=== PATIENT | female | born 1955 | race Caucasian/White ===

== ENCOUNTER 2021-08-07 10:49 | Observation (INO) | payer MEDICARE, OTHER ==
[2021-08-07] MEDS ORDERED: Sodium Chloride 0.9% 2.5 ML Syringe FLUSH PRN ×2 (10:59→15:27)
[2021-08-07] MEDS ORDERED: Sodium Chloride 0.9% 10 ML Syringe FLUSH PRN ×2 (10:59→15:27)
[2021-08-07] MEDS ORDERED: Diltiazem 50 MG/10 ML SDV IVPUSH ONE (11:10)
[2021-08-07] MEDS ORDERED: Sodium Chloride 0.9% 1,000 ML IV ONE (11:11)
[2021-08-07] MEDS ORDERED: Diltiazem IR 60 MG Tab PO ONE (11:32)
[2021-08-07 11:37] LABS: CARBON DIOXIDE,CO2 23.1 mmol/L (21.0-32.0); POTASSIUM,K 4.4 mmol/L (3.5-5.1)
[2021-08-07 12:03] LABS: CORONAVIRUS COVID-19 NAA NEGATIVE (NEGATIVE); INFLUENZA A NAA NEGATIVE (NEGATIVE); INFLUENZA B NAA NEGATIVE (NEGATIVE)
[2021-08-07] MEDS ORDERED: Ondansetron 4 MG/2 ML SDV IVPUSH PRN (15:27)
[2021-08-07] MEDS ORDERED: Acetaminophen 325 MG Tab PO PRN (15:27)
[2021-08-07 15:48] LABS: HEMOGLOBIN A1C 5.8 %
[2021-08-07] MEDS: Aspirin 81 MG Tab.Chew PO SCH (15:59)
[2021-08-07] MEDS ORDERED: Magnesium Oxide 400 MG Tab PO ONE ×2 (16:06→17:15)
[2021-08-07] MEDS: Diltiazem IR 60 MG Tab PO SCH ×2 (17:11→23:50)
[2021-08-08] MEDS: Diltiazem IR 60 MG Tab PO SCH (05:59)
[2021-08-08 06:52] LABS: BLOOD UREA NITROGEN,BUN 9 mg/dL (7.0-18.0); CARBON DIOXIDE,CO2 26.2 mmol/L (21.0-32.0); CHLORIDE,CL 99 mmol/L (98-107); GLUCOSE RANDOM 112 mg/dL (74-106); POTASSIUM,K 3.7 mmol/L (3.5-5.1); SODIUM,NA 134 mmol/L (136-145)
[2021-08-08] MEDS: Aspirin 81 MG Tab.Chew PO SCH (08:26)
[2021-08-08] MEDS ORDERED: Magnesium Oxide 400 MG Tab PO ONE (09:45)
[2021-08-08] MEDS ORDERED: Potassium Chloride 10% 20 MEQ/15 ML Soln 30 ML UD Cup PO ONE (09:45)
[2021-08-08] MEDS ORDERED: Diltiazem 180 MG Cap.CD PO SCH (11:30)
== END 2021-08-08 13:30 | disposition home or self-care (01) ==
LOC: MW.ED 10:49 → MW.MS 14:23
PROVIDERS: ADMIT Student in an Organized Health Care Education/Training Program; ATTEND Student in an Organized Health Care Education/Training Program
DX: I48.91 Unspecified atrial fibrillation (principal); R77.8 Other specified abnormalities of plasma proteins; R74.01 Elevation of levels of liver transaminase levels; I10 Essential (primary) hypertension; Z82.49 Family history of ischemic heart disease and other diseases of the circulatory system; Z79.899 Other long term (current) drug therapy; Z20.822 Contact with and (suspected) exposure to COVID-19
CPT/HCPCS: 0240U; 36415; 71045; 80053; 80061; 83036; 83735; 84443; 84484; 85025; 93005; 96374; 99285; A9270; J3490; J7030; G0378

== ENCOUNTER 2022-11-03 19:10 | Emergency (ER) | payer MEDICARE, OTHER ==
[2022-11-03] MEDS ORDERED: Sodium Chloride 0.9% 10 ML Syringe FLUSH PRN (19:32)
[2022-11-03] MEDS ORDERED: Sodium Chloride 0.9% 2.5 ML Syringe FLUSH PRN (19:32)
[2022-11-03 20:08] LABS: BASOPHILS PERCENT AUTO 0.2 % (0.0-1.5); EOSINOPHILS ABSOLUTE AUTO 0.1 K/uL (0.0-0.7); EOSINOPHILS PERCENT AUTO 0.6 % (0.0-7.0); HEMATOCRIT 40.8 % (36.0-46.0); HEMOGLOBIN 14.3 g/dL (12.0-16.0); LYMPHOCYTES ABSOLUTE AUTO 2.6 K/uL (0.6-2.4); LYMPHOCYTES PERCENT AUTO 31.7 % (16.0-40.0); MEAN CORPUSCULAR HEMOGLOBIN 31.3 pg (27.0-32.0); MEAN CORPUSCULAR VOLUME 89.3 fL (80.0-98.0); MONOCYTES ABSOLUTE AUTO 0.8 K/uL (0.0-0.8); MONOCYTES PERCENT AUTO 9.2 % (0.0-15.0); NEUTROPHILS ABSOLUTE AUTO 4.9 K/uL (1.4-5.7); NEUTROPHILS PERCENT AUTO 58.3 % (48.0-80.0); NRBC ABSOLUTE 0 K/uL; PLATELET COUNT,PLT 310 K/uL (150-400); RED BLOOD CELL COUNT 4.57 M/uL (4.30-5.90); WHITE BLOOD CELL COUNT,WBC 8.34 K/uL (4.0-11.0)
[2022-11-03 20:29] LABS: A/G RATIO 0.9 (0.9-1.6); ALBUMIN 3.8 g/dL (3.4-5.0); BILIRUBIN TOTAL 0.4 mg/dL (0.2-1.0); CARBON DIOXIDE,CO2 26.9 mmol/L (21.0-32.0); CREATININE 0.7 mg/dL (0.6-1.0); EST CRCL DRUG DOSING (CG) 76.88 mL/min; POTASSIUM,K 2.8 mmol/L (3.5-5.1); PROTEIN TOTAL,TP 8.2 g/dL (6.4-8.2)
[2022-11-03] MEDS ORDERED: Potassium Chloride 20 MEQ Tab.ER PO ONE (20:41)
== END 2022-11-03 20:57 | disposition home or self-care (01) ==
LOC: MW.ED 19:10
DX: K91.840 Postprocedural hemorrhage of a digestive system organ or structure following a digestive system procedure (principal); E87.6 Hypokalemia; E87.1 Hypo-osmolality and hyponatremia
CPT/HCPCS: 36415; 80053; 85025; 86850; 86900; 86901; 99283; A9270; J3490